=== PATIENT | male | born 1965 | race Caucasian/White ===

== ENCOUNTER 2017-12-08 19:00 | Inpatient (IN) | payer MEDICARE, MEDICAID ==
[~2017-12-08] VITALS: Ht 165.1 cm; Wt 59.4 kg
--- NOTE | 2017-12-08 19:23 | NUR ---
PT TO ER BED 12. BIBRA C/O DRINKING AND SMOKING MARIJUANA, CAREGIVER CALLED AMBULANCE. COUGH/CONGESTION NOTED. PT PLACED IN GOWN AND ON DIRECTOR COMMUNITY ORGANIZATION. VSS/RESP EVEN UNLABORED/NAD NOTED/SKIN WARM AND DRY/DENIES N-V-D/AFEBRILE/AOX4. AWAITING MD BENOIT.
--- NOTE | 2017-12-08 19:25 | NUR ---
CALLED RT FOR BREATHING TREATMENT
[2017-12-08] MEDS ORDERED: IPRATROPIUM NEB FS 0.5 MG/2.5 ML AMPUL.NEB ONE (19:29)
[2017-12-08] MEDS ORDERED: ALBUTEROL FS 2.5 MG/3 ML VIAL.NEB ONE (19:29)
[2017-12-08] MEDS ORDERED: IPRATROPIUM NEB FS 0.5 MG/2.5 ML AMPUL.NEB NEB ONE (19:30)
[2017-12-08] MEDS ORDERED: IV NS 0.9% 1,000 ML BAG IV ONE (19:30)
[2017-12-08] MEDS ORDERED: ALBUTEROL FS 2.5 MG/3 ML VIAL.NEB CONTNEB ONE (19:30)
--- NOTE | 2017-12-08 19:30 | NUR ---
20G IV X 1 ATTEMPT TO L AC USING ASEPTIC TECH, BLOOD HANDED OVER TO THE LAB AT THE BEDSIDE. IV FLUSHES EASILY WITH NS, NO S/S INFILTRATION.
--- NOTE | 2017-12-08 19:33 | NUR ---
RT AT BEDSIDE FOR ISAC CHAO
[2017-12-08 19:37] LABS: BASOPHILS # (AUTO) 0.1 /CMM (0.0-0.2); BASOPHILS % (AUTO) 0.7 % (0.0-2.0); EOSINOPHILS % (AUTO) 0.7 % (0.0-6.0); HEMATOCRIT 44 % (39-51); HEMOGLOBIN 14.7 g/dL (13.5-17.5); LYMPHOCYTES # (AUTO) 0.7 /CMM (0.8-4.8); LYMPHOCYTES % (AUTO) 9.2 % (20.0-44.0); MEAN CORPUSCULAR HGB CONC 34 g/dl (31.0-36.0); MEAN CORPUSCULAR VOLUME 88 fL (80-96); MONOCYTES # (AUTO) 0.7 /CMM (0.1-1.30); MONOCYTES % (AUTO) 8.7 % (2.0-12.0); NEUTROPHILS % (AUTO) 80.7 % (43.0-81.0); PLATELET COUNT (AUTO) 373 /CMM (150-450); RDW COEFFICIENT OF VARIATION 13.6 (11.5-15.0); RED BLOOD CELL COUNT(AUTO) 4.97 MIL/uL (4.5-6.0); WHITE BLOOD COUNT (AUTO) 7.6 K/uL (4.3-11.0)
--- NOTE | 2017-12-08 19:40 | NUR ---
XRAY AT BEDSIDE.
[2017-12-08 19:49] LABS: CALCIUM, SERUM 8.2 mg/dL (8.5-10.1); CREATININE 0.6 mg/dL (0.6-1.3); POTASSIUM 4.4 mmol/L (3.5-5.1)
[2017-12-08 19:56] LABS: TROPONIN I 0.038 ng/mL (0.00-0.056)
[2017-12-08 20:01] LABS: ALBUMIN 3.3 g/dL (3.4-5.0); BILIRUBIN,DIRECT 0.4 mg/dL (0.0-0.2); BILIRUBIN,TOTAL 0.7 mg/dL (0.2-1.0); TOTAL PROTEIN, SERUM 7.1 g/dL (6.4-8.2)
--- NOTE | 2017-12-08 20:17 | NUR ---
URINE SPECIMEN OTAINED AND SENT TO THE LAB.
--- NOTE | 2017-12-08 20:17 | NUR ---
CALLED [facility], , SPOKE WITH HOMAR, TRANSFERRED CALL TO BETH FISH.
[2017-12-08] MEDS ORDERED: methylPREDNISolone SOD SUCC 125 MG/2ML VIAL ONE (20:25)
[2017-12-08] MEDS ORDERED: IOHEXOL-350 100 ML VIAL IV ONE (20:28)
[2017-12-08] MEDS ORDERED: IV NS 0.9% 250 ML IV ONE (20:28)
[2017-12-08] MEDS ORDERED: methylPREDNISolone SOD SUCC 125 MG/2ML VIAL IV ONE (20:30)
--- NOTE | 2017-12-08 20:34 | NUR ---
PT TO CT VIA STRETCHER. VSS.
--- NOTE | 2017-12-08 20:53 | NUR ---
DANIEL PAGED, ESTHELA JIMENEZ RESEARCH AND DEVELOPMENT ENGINEER.
--- NOTE | 2017-12-08 20:57 | NUR ---
CALLED NURSING SUP. FOR TELE BED
[2017-12-08] MEDS ORDERED: FUROSEMIDE 20 MG/2 ML VIAL ONE (21:14)
[2017-12-08] MEDS ORDERED: FUROSEMIDE 40 MG/4 ML VIAL ONE (21:14)
[2017-12-08] MEDS ORDERED: FUROSEMIDE 20 MG/2 ML VIAL IV ONE (21:30)
[2017-12-08] MEDS ORDERED: IV NS 0.9% 1,000 ML IV PRN (22:13)
[2017-12-08] MEDS ORDERED: ONDANSETRON HCL/PF 4 MG/2 ML VIAL IVP PRN (22:30)
[2017-12-08] MEDS ORDERED: ACETAMINOPHEN 325 MG TABLET PO PRN (22:30)
[2017-12-08] MEDS ORDERED: Thiamine 100 MG in IV D5W 50 ML IV ONE (22:30)
[2017-12-08] MEDS ORDERED: Z GUARD REMEDY 2 OZ OINT TP PRN (22:30)
--- NOTE | 2017-12-08 22:46 | NUR ---
PT BROTHER [phone].
[2017-12-08 22:50] LABS: INR 1.06 (0.87-1.13)
[2017-12-08 23:01] LABS: OSMOLALITY,URINE 289 mOS/kg (340-1090)
[2017-12-08 23:02] LABS: OSMOLALITY,SERUM 319 mOS/kg (278-305)
[2017-12-08 23:06] LABS: URINE SODIUM, RANDOM 8 mmol/l (40-220)
--- NOTE | 2017-12-08 23:11 | NUR ---
REPORT GIVEN TO BARB GUERRA FOR CLARISSA. PT GOING TO TELE 115-2.
--- NOTE | 2017-12-08 23:20 | NUR ---
RN NOTES ADMITTED A 52 YEAR OLD MALE FROM ER VIA STRETCHER. PATIENT ON 4LPM O2 VIA NASAL CANNULA TOLERATING WELL. NO COMPLAINT OF PAIN. ALERT AND ORIENTED. CONTINENT. ABLE TO VERBALIZE NEEDS. LAC PIV LINE PATENT AND INTACT. KEPT CLEAN AND DRY. WILL CONTINUE TO MONITOR.
--- NOTE | 2017-12-08 23:24 | NUR ---
PT TRANSPORTED VIA STRETCHER TO [place] [id number] ON [employer] WITH RN PER ACLS PROTOCOL. VSS.
[2017-12-09] VITALS (7 sets, daily range): BP systolic 133–148; BP diastolic 62–95
[2017-12-09] MEDS ORDERED: CEFTRIAXONE 1 G VIAL ONE (00:11)
[2017-12-09] MEDS ORDERED: AZITHROMYCIN 500 MG VIAL ONE (00:39)
[2017-12-09] MEDS ORDERED: Thiamine 100 MG/ML VIAL ONE (00:40)
[2017-12-09] MEDS: CEFTRIAXONE 1 G in IV NS 0.9% 50 ML IV SCH ×2 (00:40→22:59)
[2017-12-09] MEDS: AZITHROMYCIN 500 MG in IV D5W 250 ML IV SCH ×2 (01:21→21:40)
--- NOTE | 2017-12-09 06:46 | NUR ---
RN CLOSING NOTES IN BED COMFORTABLY RESTING WITH NO DISTRESS NOTED. BREATHING EVEN AND UNLABORED. NO SIGNIFICANT CHANGE OF CONDITION. VITAL SIGNS WNL. KEPT CLEAN AND DRY. WILL ENDORSE TO AM SHIFT FOR CONTINUITY OF CARE.
[2017-12-09 07:11] LABS: EOSINOPHILS % (AUTO) 0.1 % (0.0-6.0); HEMATOCRIT 44 % (39-51); HEMOGLOBIN 14.6 g/dL (13.5-17.5); LYMPHOCYTES # (AUTO) 0.3 /CMM (0.8-4.8); LYMPHOCYTES % (AUTO) 5.6 % (20.0-44.0); MEAN CORPUSCULAR HGB CONC 33 g/dl (31.0-36.0); MEAN CORPUSCULAR VOLUME 91 fL (80-96); MONOCYTES % (AUTO) 0.5 % (2.0-12.0); NEUTROPHILS # (AUTO) 4.8 /CMM (1.8-8.9); NEUTROPHILS % (AUTO) 93.8 % (43.0-81.0); PLATELET COUNT (AUTO) 327 /CMM (150-450); RDW COEFFICIENT OF VARIATION 14.8 (11.5-15.0); RED BLOOD CELL COUNT(AUTO) 4.86 MIL/uL (4.5-6.0); WHITE BLOOD COUNT (AUTO) 5.1 K/uL (4.3-11.0)
--- NOTE | 2017-12-09 07:15 | NUR ---
RN OPENING NOTES RECEIVED PATIENT IN BED, ALERT ORIENTED X 4. NO ACUTE DISTRESS NOTED. BREATHING UNLABORED. IV ACCESS PATENT AND INTACT, NO REDNESS OR SWELLING NOTES. CALL LIGHT WITHIN REACH. SAFETY MEASURES IN PLACE. HOB ELEVATED. WILL CONTINUE TO MONITOR ACCORDINGLY.
[2017-12-09] MEDS: ALBUTEROL FS 2.5 MG/0.5 ML VIAL.NEB NEB SCH ×4 (07:19→19:12)
[2017-12-09] MEDS: IPRATROPIUM NEB FS 0.5 MG/2.5 ML AMPUL.NEB NEB SCH ×4 (07:19→19:12)
[2017-12-09] MEDS ORDERED: PANTOPRAZOLE 40 MG TABLET.DR PO SCH (07:30)
[2017-12-09 07:42] LABS: ALBUMIN 3.4 g/dL (3.4-5.0); BILIRUBIN,TOTAL 0.7 mg/dL (0.2-1.0); CALCIUM, SERUM 7.7 mg/dL (8.5-10.1); CREATININE 0.5 mg/dL (0.6-1.3); PHOSPHORUS 4.2 mg/dL (2.5-4.9); POTASSIUM 3.7 mmol/L (3.5-5.1); TOTAL PROTEIN, SERUM 7.2 g/dL (6.4-8.2)
[2017-12-09 07:52] LABS: THYROID STIMULATING HORMONE 0.832 uIU/mL (0.358-3.74)
[2017-12-09] MEDS ORDERED: UMEC62.5 IH (07:57)
[2017-12-09] MEDS ORDERED: CLON0.1T PO (07:57)
[2017-12-09] MEDS ORDERED: ALBU18HF2 IH (07:57)
[2017-12-09] MEDS ORDERED: BUPR150T10 PO (07:57)
[2017-12-09] MEDS ORDERED: OMEP20CA10 PO (07:57)
[2017-12-09] MEDS ORDERED: DOCU250C14 PO (07:57)
[2017-12-09] MEDS ORDERED: MEGE40TA PO (07:57)
[2017-12-09] MEDS ORDERED: CALC-7 PO (07:57)
[2017-12-09] MEDS ORDERED: LISI-607 PO (07:57)
[2017-12-09] MEDS ORDERED: SIMV20TA6 PO (07:57)
[2017-12-09] MEDS ORDERED: RISP0.253 PO (07:57)
[2017-12-09] MEDS ORDERED: ALBU4TAB4 PO (07:57)
[2017-12-09] MEDS ORDERED: FOLI1TAB16 PO (07:57)
[2017-12-09] MEDS: THIAMINE HCL 100 MG TABLET PO SCH (08:13)
[2017-12-09] MEDS: PANTOPRAZOLE 40 MG TABLET.DR PO SCH ×2 (08:13→16:41)
[2017-12-09] MEDS: ASPIRIN EC 81 MG TABLET.DR PO SCH (08:13)
[2017-12-09] MEDS: predniSONE 20 MG TABLET PO SCH (08:14)
[2017-12-09] MEDS: ENOXAPARIN SODIUM 40 MG/0.4 ML DISP.SYRIN SQ SCH (08:28)
--- NOTE | 2017-12-09 08:45 | NUR ---
RN NOTES SEEN AND EVALUATED BY DR NÚÑEZ WITH NEW ORDERS MADE. NOTED AND CARRIED OUT.
[2017-12-09] MEDS ORDERED: FUROSEMIDE 40 MG/4 ML VIAL IV ONE (09:00)
[2017-12-09 15:51] LABS: OSMOLALITY,URINE 372 mOS/kg (340-1090)
[2017-12-09 16:01] LABS: URINE SODIUM, RANDOM 9 mmol/l (40-220)
--- NOTE | 2017-12-09 18:49 | NUR ---
RN CLOSING NOTES PATIENT IN BED,ALERT ORIENTED X4. REMAINS ON O2 SATURATING @ 96%. NO ACUTE DISTRESS NOTED. BREATHING UNLABORED. IV ACCESS PATENT AND INTACT, NO REDNESS OR SWELLING NOTES. CALL LIGHT WITHIN REACH. SAFETY MEASURES IN PLACE. HOB ELEVATED. WILL CONTINUE TO MONITOR ACCORDINGLY. WILL ENDORSE TO NIGHT NURSE FOR CONTINUITY OF CARE.
[2017-12-09] MEDS: ATORVASTATIN 10 MG TABLET PO SCH (21:10)
--- NOTE | 2017-12-09 23:40 | NUR ---
RN NOTES c/o productive cough; Dr. Angel Butcher made aware, with new orders carried out
[2017-12-10] VITALS (7 sets, daily range): BP systolic 129–167; BP diastolic 89–106
[2017-12-10] MEDS: HYDROCODONE BIT/HOMATROPINE 5 ML UDC PO PRN ×2 (00:19→06:31)
[2017-12-10] MEDS: PANTOPRAZOLE 40 MG TABLET.DR PO SCH ×2 (06:32→17:18)
[2017-12-10 06:51] LABS: CALCIUM, SERUM 7.6 mg/dL (8.5-10.1); CREATININE 0.5 mg/dL (0.6-1.3); MAGNESIUM 1.6 mg/dL (1.8-2.4); PHOSPHORUS 2.3 mg/dL (2.5-4.9); POTASSIUM 3.6 mmol/L (3.5-5.1)
--- NOTE | 2017-12-10 07:25 | NUR ---
telephone instrument supervisor initial notes Received patient in bed, awake, head of bed elevated, no SOB or distress noted. Alert and oriented x 4, verbally responsive and able to make needs known. On tele monitor SR heart rate of 87, no complaint of pain or discomfort noted. on 02 @ 4lpm via NC. IV intact and patent HL only. Call light with in patient reach, will continue to monitor accordingly.
[2017-12-10 07:28] LABS: URINE SODIUM, RANDOM 13 mmol/l (40-220)
[2017-12-10] MEDS: IPRATROPIUM NEB FS 0.5 MG/2.5 ML AMPUL.NEB NEB SCH ×4 (07:28→19:58)
[2017-12-10] MEDS: ALBUTEROL FS 2.5 MG/0.5 ML VIAL.NEB NEB SCH ×4 (07:28→19:58)
[2017-12-10 07:57] LABS: THYROID STIMULATING HORMONE 1.794 uIU/mL (0.358-3.74); URIC ACID 1.8 mg/dL (2.6-7.2)
[2017-12-10] MEDS: THIAMINE HCL 100 MG TABLET PO SCH (08:33)
[2017-12-10] MEDS: ASPIRIN EC 81 MG TABLET.DR PO SCH (08:34)
[2017-12-10] MEDS: predniSONE 20 MG TABLET PO SCH (08:34)
[2017-12-10] MEDS: ENOXAPARIN SODIUM 40 MG/0.4 ML DISP.SYRIN SQ SCH (08:34)
[2017-12-10 09:55] LABS: OSMOLALITY,URINE 138 mOS/kg (340-1090)
[2017-12-10] MEDS: Magnesium 1GM/D5W 100ML PREMIX 100 ML IV SCH ×2 (10:36→11:32)
[2017-12-10] MEDS ORDERED: K PHOS NEUTRAL 250 MG TABLET PO ONE (11:30)
[2017-12-10] MEDS ORDERED: IV NS 0.9% 1,000 ML IV PRN (14:00)
--- NOTE | 2017-12-10 19:16 | NUR ---
COMPLIANCE ATTORNEY CLOSING NOTES All needs provided, attended, anticipated. Call light with in patient reach, on tele monitor SR, no complaint of pain or discomfort. Endorsed to next shift RN to continue care.
--- NOTE | 2017-12-10 19:30 | NUR ---
RN NOTES RECEIVED PATIENT IN BED AWAKE, AO X 3, ABLE TO MAKE NEEDS KNOWN. NO ACUTE DISTRESS NOTED. DENIES ANY PAIN AT THIS TIME. IV SITE PATENT, INTACT; FLUSHED. SAFETY REMINDERS GIVEN. ON LOW BED WITH BILATERAL UPPER SIDE RAILS UP. CALL [place] WITHIN EASY REACH. WILL CONTINUE TO MONITOR.
[2017-12-10] MEDS: ATORVASTATIN 10 MG TABLET PO SCH (22:03)
[2017-12-10] MEDS: AZITHROMYCIN 500 MG in IV D5W 250 ML IV SCH (22:05)
[2017-12-10] MEDS: CEFTRIAXONE 1 G in IV NS 0.9% 50 ML IV SCH (23:50)
[2017-12-11] VITALS (8 sets, daily range): BP systolic 145–165; BP diastolic 90–111
[2017-12-11] MEDS: LORAZEPAM INJ 2 MG/ML VIAL IV PRN ×2 (00:37→06:40)
--- NOTE | 2017-12-11 06:00 | NUR ---
RN NOTES PATIENT ASLEEP, EASILY AROUSABLE. RESPIRATIONS EVEN. NO SIGNS OF PAIN NOTED. DUE MEDS GIVEN WITH NO ASE NOTED. NEEDS ATTENDED. KEPT CLEAN AND DRY. SAFETY PRECAUTIONS AND COMFORT MEASURES IN PLACE. WILL GIVE REPORT TO DAY SHIFT FOR CONTINUITY OF CARE.
--- NOTE | 2017-12-11 07:30 | NUR ---
RN NOTES RECEIVED PATIENT IN BED ALERT, AWAKE, ORIENTED X4 WITH BREATHING NORMAL, EVEN AND UNLABORED. NO SOB NOTED. NO ACUTE DISTRESS NOTED. DENIES ANY PAIN OR DISCOMFORT. TELE MONITOR REVEALS ST, ZU=[id number]. IV LAC IS PATENT AND INTACT, NO INFILTRATION NOTED. BOWEL SOUND PRESENT. PULSES PRESENT. SAFETY MEASURE OBSERVED. ALL NEEDS ATTENDED. CALL LIGHT WITH IN REACH. WILL CONT TO MONITOR.
[2017-12-11 07:43] LABS: CREATININE 0.4 mg/dL (0.6-1.3); PHOSPHORUS 3.1 mg/dL (2.5-4.9); POTASSIUM 3.8 mmol/L (3.5-5.1)
[2017-12-11] MEDS: PANTOPRAZOLE 40 MG TABLET.DR PO SCH ×2 (08:30→16:56)
[2017-12-11] MEDS: ASPIRIN EC 81 MG TABLET.DR PO SCH (08:30)
[2017-12-11] MEDS: THIAMINE HCL 100 MG TABLET PO SCH (08:30)
[2017-12-11] MEDS: predniSONE 20 MG TABLET PO SCH (08:30)
[2017-12-11] MEDS: ENOXAPARIN SODIUM 40 MG/0.4 ML DISP.SYRIN SQ SCH (08:31)
[2017-12-11] MEDS: ALBUTEROL FS 2.5 MG/0.5 ML VIAL.NEB NEB SCH ×6 (08:49→19:30)
[2017-12-11] MEDS: IPRATROPIUM NEB FS 0.5 MG/2.5 ML AMPUL.NEB NEB SCH ×4 (08:49→19:30)
[2017-12-11] MEDS ORDERED: LORAZEPAM INJ 2 MG/ML VIAL IV PRN (11:00)
[2017-12-11] MEDS: CLONIDINE HCL 0.1 MG TABLET PO SCH ×2 (12:37→16:56)
--- NOTE | 2017-12-11 15:23 | NUR ---
Ventolin scheduled for 01:30pm was not given due to it is duplicate order. Patient is getting Ventolin and Atrovent [id number].
--- NOTE | 2017-12-11 19:19 | NUR ---
RN NOTES PATIENT ENDORSED TO NEXT SHIFT IN STABLE CONDITION FOR CONTINUITY OF CARE. NO SIGNIFICANT CHANGES NOTED. WILL CONT TO MONITOR.
--- NOTE | 2017-12-11 19:56 | NUR ---
INTERNATIONAL BANKER NOTE PT IN BED ASLEEP, EASILY AROUSABLE. A/O X 4, NO SOB NOTED. NO DISTRESS OR DISCOMFORT NOTED. DENIES PAIN. ON TELE SR HR 86. LAC #20 G S/L INTACT AND PATENT. ALL NEEDS ATTENDED. VSS. CONTINUE TO MONITOR HIM.
[2017-12-11] MEDS ORDERED: risperiDONE 0.25 MG TABLET PO SCH (22:00)
[2017-12-11] MEDS ORDERED: DOCUSATE SODIUM 250 MG CAPSULE PO SCH (22:00)
[2017-12-11] MEDS ORDERED: SIMVASTATIN 20 MG TABLET PO SCH (22:00)
[2017-12-11] MEDS ORDERED: risperiDONE 1 MG TABLET PO SCH (22:00)
[2017-12-11] MEDS ORDERED: risperiDONE 1 MG TABLET ONE (22:09)
--- NOTE | 2017-12-11 22:17 | NUR ---
ADMINISTRATIVE TECH NOTE VERIFIED WITH PHARMACY RISPERDAL MEDICATION OF 4MG WHICH IS 16 TABS OF 0.25 MG. AND NOT ENOUGH MED IN PIXIS. PHARMACY WILL ADJUST THE MEDS.
[2017-12-11] MEDS: ATORVASTATIN 10 MG TABLET PO SCH (22:22)
[2017-12-11] MEDS: AZITHROMYCIN 500 MG in IV D5W 250 ML IV SCH (22:23)
[2017-12-11] MEDS: CEFTRIAXONE 1 G in IV NS 0.9% 50 ML IV SCH (23:48)
[2017-12-12] VITALS: BP 134/82
[2017-12-12] MEDS: ALBUTEROL FS 2.5 MG/0.5 ML VIAL.NEB NEB SCH ×7 (01:30→19:44)
--- NOTE | 2017-12-12 06:58 | NUR ---
CHEMIST WATER PURIFICATION NOTE PT IN BED ASLEEP, AROUSABLE. NO CHANGE IN CONDITION DURING THE NIGHT. ON TELE S R 95. SIDE RAILS UP X 3 AND CALL LIGHT WITHIN REACH. WILL ENDORSE TO DAY SHIFT NURSE FOR CONTINUE TO CARE.
--- NOTE | 2017-12-12 07:30 | NUR ---
RN NOTES RECEIVED PATIENT IN BED ALERT, AWAKE, ORIENTED X4 WITH BREATHING NORMAL, EVEN AND UNLABORED. NO SOB NOTED. NO ACUTE DISTRESS NOTED. DENIES ANY PAIN OR DISCOMFORT. TELE MONITOR REVEALS ST, HR=96. IV LAC IS PATENT AND INTACT, NO INFILTRATION NOTED. BOWEL SOUND PRESENT. PULSES PRESENT. SAFETY MEASURE OBSERVED. ALL NEEDS ATTENDED. CALL LIGHT WITH IN REACH. WILL CONT TO MONITOR.
[2017-12-12] MEDS: IPRATROPIUM NEB FS 0.5 MG/2.5 ML AMPUL.NEB NEB SCH ×4 (07:32→19:44)
[2017-12-12 07:40] LABS: BASOPHILS % (AUTO) 0.2 % (0.0-2.0); EOSINOPHILS % (AUTO) 0.6 % (0.0-6.0); HEMATOCRIT 43 % (39-51); LYMPHOCYTES % (AUTO) 16.6 % (20.0-44.0); MEAN CORPUSCULAR HGB CONC 33 g/dl (31.0-36.0); MEAN CORPUSCULAR VOLUME 90 fL (80-96); MONOCYTES % (AUTO) 7.8 % (2.0-12.0); NEUTROPHILS # (AUTO) 9.1 /CMM (1.8-8.9); NEUTROPHILS % (AUTO) 74.8 % (43.0-81.0); PLATELET COUNT (AUTO) 323 /CMM (150-450); RDW COEFFICIENT OF VARIATION 14.8 (11.5-15.0); RED BLOOD CELL COUNT(AUTO) 4.74 MIL/uL (4.5-6.0); WHITE BLOOD COUNT (AUTO) 12.2 K/uL (4.3-11.0)
[2017-12-12 07:52] LABS: CALCIUM, SERUM 8.2 mg/dL (8.5-10.1); CREATININE 0.4 mg/dL (0.6-1.3); MAGNESIUM 2.3 mg/dL (1.8-2.4); PHOSPHORUS 3.6 mg/dL (2.5-4.9)
[2017-12-12] MEDS: PANTOPRAZOLE 40 MG TABLET.DR PO SCH ×2 (08:16→16:55)
[2017-12-12] MEDS: THIAMINE HCL 100 MG TABLET PO SCH (08:48)
[2017-12-12] MEDS: predniSONE 20 MG TABLET PO SCH (08:48)
[2017-12-12] MEDS: CLONIDINE HCL 0.1 MG TABLET PO SCH ×3 (08:48→16:55)
[2017-12-12] MEDS: ENOXAPARIN SODIUM 40 MG/0.4 ML DISP.SYRIN SQ SCH (08:49)
[2017-12-12] MEDS: ASPIRIN EC 81 MG TABLET.DR PO SCH (08:50)
[2017-12-12] MEDS ORDERED: LISINOPRIL (5MG) 5 MG TABLET PO SCH (09:00)
[2017-12-12] MEDS ORDERED: buPROPion SR 150 MG TABLET.ER PO SCH (09:00)
[2017-12-12] MEDS ORDERED: FOLIC ACID 1 MG TABLET PO SCH (09:00)
[2017-12-12 10:00] VITALS: BP 135/95
--- NOTE | 2017-12-12 14:02 | NUR ---
PATIENT ROOM AIR SAT 84%,MD AWARE AND SALES SPECIALIST NOTIFIED.
[2017-12-12] MEDS ORDERED: AZIT500T PO (14:55)
[2017-12-12] MEDS ORDERED: CEFT1FRO2 IV (14:55)
[2017-12-12] MEDS ORDERED: PRED20TA PO (14:55)
[2017-12-12 16:00] VITALS: BP 146/98
[2017-12-12 16:55] VITALS: BP 146/98
--- NOTE | 2017-12-12 19:30 | NUR ---
RN NOTES PATIENT ENDORSED TO NEXT SHIFT IN STABLE CONDITION FOR CONTINUITY OF CARE. NO SIGNIFICANT CHANGES NOTED. WILL CONT TO MONITOR.
--- NOTE | 2017-12-12 20:20 | NUR ---
MS RN NOTE PT DISCHARGED TO [facility]. REPORT GIVEN TO KEVIN DAY AND ALSO TO AMBULANCE PERSONAL. DISCHARGE INSTRUCTIONS GIVEN TO PT. ALL THE BELONGINGS GIVEN TO PT. PT IN NO DISTRESS OR DISCOMFORT NOTED. DENIES PAIN. PT LEFT THE ROOM ON [facility] WITH AMBULANCE PERSONAL.
== END 2017-12-12 20:30 | DRG 291 ==
LOC: ER 19:04 → TELE1 21:55 → MEDSG1 12-12 09:53
PROVIDERS: ADMIT Nurse Practitioner Acute Care; ATTEND Nurse Practitioner Acute Care
DX: I11.0 Hypertensive heart disease with heart failure (principal); G93.41 Metabolic encephalopathy; J96.01 Acute respiratory failure with hypoxia; E22.2 Syndrome of inappropriate secretion of antidiuretic hormone; E86.1 Hypovolemia; J44.1 Chronic obstructive pulmonary disease with (acute) exacerbation; J44.0 Chronic obstructive pulmonary disease with (acute) lower respiratory infection; F10.129 Alcohol abuse with intoxication, unspecified; I50.33 Acute on chronic diastolic (congestive) heart failure; J20.9 Acute bronchitis, unspecified; K21.9 Gastro-esophageal reflux disease without esophagitis; Y90.8 Blood alcohol level of 240 mg/100 ml or more; E11.9 Type 2 diabetes mellitus without complications; F17.210 Nicotine dependence, cigarettes, uncomplicated; F29 Unspecified psychosis not due to a substance or known physiological condition; F12.90 Cannabis use, unspecified, uncomplicated; Z85.118 Personal history of other malignant neoplasm of bronchus and lung
CPT/HCPCS: 36415; 71045-TC; 80048-TC; 80053-TC; 80061-TC; 80076-TC; 80305; 83540-TC; 83690-TC; 83735-TC; 83880; 83935-TC; 84100-TC; 84300-TC; 84443-TC; 84484-TC; 84550-TC; 85025-TC; 85378-TC; 85610-TC; 87040-TC; 87081-TC; 93307-TC; 94799-TC; A4216; A4606; G0480; J0456; J0696; J1650; J1940; J2060; J2930; J3411; J3475; J7030; J7050; J7060; Q9967; Z7610